=== PATIENT | female | born 1970 | race Caucasian/White ===

== ENCOUNTER → 2020-10-21 | Outpatient (CLI) | payer BC ==
[2020-10-22 03:26] LABS: Peanut IgE <0.10 kU/L; Shrimp IgE <0.10 kU/L; Walnut IgE (Food) <0.10 kU/L
[2020-10-22 12:04] LABS: Almond IgE <0.10 kU/L (<0.10); Almond IgE Class CLASS 0
[2020-10-22 12:05] LABS: Pecan IgE <0.10 kU/L (<0.10); Pecan IgE Class CLASS 0
[2020-10-22 12:06] LABS: Cashew IgE <0.10 kU/L (<0.10); Cashew IgE Class CLASS 0
== END | disposition home or self-care (01) ==
LOC: LABWHC1 13:28
PROVIDERS: ATTEND Allergy & Immunology
DX: R10.9 Unspecified abdominal pain (principal); R19.7 Diarrhea, unspecified; Z91.018 Allergy to other foods
CPT/HCPCS: 36415; 86003